=== PATIENT | female | born 1940 | race American Indian/Alaskan Native ===

== ENCOUNTER 2017-05-20 10:39 | Outpatient (CLI) | payer MEDICARE ==
--- NOTE | 2017-05-20 11:49 | Cat Scan Report ---
CT HEAD WITHOUT CONTRAST: HISTORY: Vascular dementia with behavioral disturbance. TECHNIQUE: Sequential CT images without contrast. FINDINGS: Images obtained show bilateral prominence of the sulci and ventricles. There are no abnormal intra- or extra-axial blood or fluid collections. There are no focal masses or evidence of mass effect. The [place] white matter differentiation appears within normal limits. Regions of periventricular decreased attenuation are consistent with microangiopathic ischemic disease. Bilateral basal ganglia calcifications are noted. The posterior fossa structures including the fourth ventricle, cerebellum, and brainstem appear normal. IMPRESSION: Evidence of atrophy and microangiopathic ischemic disease. No acute intracranial process noted. No change since 08/19/16.
== END 2017-05-20 10:40 | disposition home or self-care (01) ==
LOC: CT 10:39
PROVIDERS: ATTEND Psychiatry & Neurology Neurology
DX: F01.51 Vascular dementia, unspecified severity, with behavioral disturbance (principal); G23.8 Other specified degenerative diseases of basal ganglia; G31.89 Other specified degenerative diseases of nervous system; I10 Essential (primary) hypertension; F32.9 Major depressive disorder, single episode, unspecified; E78.5 Hyperlipidemia, unspecified; E11.9 Type 2 diabetes mellitus without complications
CPT/HCPCS: 70450